=== PATIENT | female | born 2000 | race Caucasian/White ===

== ENCOUNTER 2023-05-10 12:19 | Emergency (ER) | payer OTHER, SELFPAY ==
--- NOTE | 2023-05-10 12:46 | ED_ITS ---
HPI - Head Injury <AMELIE Levi - Last Filed: 05/10/23 13:59> General Chief complaint: Head Injury Stated complaint: Head inj Time Seen by Provider: 05/10/23 12:45 History of Present Illness HPI Narrative: This is a 22-year-old female presents to the emergency department with a work- related injury where she was her parents unload a box truck and the tailgate door came down and hit her in the head causing a loss of consciousness. She is had blurred vision since this incident, complains of mid neck pain, fell backwards and states that her toes went numb but then she came back to. Endorses nausea without vomiting, had repetitive questioning on the way to the hospital today and was concerned because her vision was blurry. Related Data Home Medications Medication Instructions Recorded Confirmed gabapentin PO QPM 07/09/19 07/09/19 Previous Rx's Medication Instructions Recorded ondansetron 4 mg disintegrating 4 mg PO Q8H #10 tabs 05/10/23 tablet Allergies Allergy/AdvReac Type Severity Reaction Status Date / Time No Known Drug Allergies Allergy Verified 05/10/23 12:47 Review of Systems <AMELIE Levi - Last Filed: 05/10/23 13:59> Review of Systems ROS Unobtainable: All systems reviewed & are unremarkable except as noted in HPI and below Patient History <AMELIE Levi - Last Filed: 05/10/23 13:59> Social History Smoking Status: Current every day smoker Smoking Status: Former smoker Exam <AMELIE Levi - Last Filed: 05/10/23 13:59> Narrative Exam Narrative: Reviewed vitals signs and nursing notes. General: Pleasant, sitting upright, delayed and slowed reaction time, well groomed, afebrile HEENT: symmetrical facial expressions, moist mucous membranes, neck is supple, no cervical spine tenderness to palpation, patient complains of neck pain, muscle tension, wearing a C-collar, will obtain CT cervical spine prior to removing the collar. Pupils are equal and reactive without nystagmus, EOMI, and patient's speech is clear CV: regular rate and rhythm, warm extremities Respiratory: normal work of breathing, without tachypnea or hypoxia. GI: abdomen soft, nondistended, without CVA tenderness bilaterally. MSK: moves all extremities, no weakness, normal tone, ambulatory without deficit Skin: brisk capillary refill, without rash or wound Neuro: clear speech and normal cognition, A&O x3, GCS 15, no focal motor or sensation deficits Initial Vital Signs Initial Vital Signs: Vital Signs Temperature 98.0 F 05/10/23 12:47 Pulse Rate 93 H 05/10/23 12:47 Respiratory Rate 14 05/10/23 12:47 Blood Pressure 139/100 H 05/10/23 12:47 Pulse Oximetry 99 05/10/23 12:47 Oxygen Delivery Method Room Air 05/10/23 12:47 <Jeane Wilkinson DO - Last Filed: 05/20/23 01:34> Initial Vital Signs Initial Vital Signs: Vital Signs Temperature 98.0 F 05/10/23 12:47 Pulse Rate 93 H 05/10/23 12:47 Respiratory Rate 14 05/10/23 12:47 Blood Pressure 139/100 H 05/10/23 12:47 Pulse Oximetry 99 05/10/23 12:47 Oxygen Delivery Method Room Air 05/10/23 12:47 Scores <AMELIE Levi - Last Filed: 05/10/23 13:59> Nexus Score for C-Spine Focal Neurologic deficit present: No Midline spinal tenderness present: No Altered level of conciousness present: Yes Intoxication present: No Distracting Injury Present: No Nexus Criteria for C-spine: 1 <Jeane Wilkinson DO - Last Filed: 05/20/23 01:34> Nexus Score for C-Spine Nexus Criteria for C-spine: 1 Course <AMELIE Levi - Last Filed: 05/10/23 13:59> Orders Ordered: Discontinued Medications Acetaminophen (Acetaminophen 325 Mg Tablet) 650 mg PO NOW ONE Stop: 05/10/23 12:56 Last Admin: 05/10/23 13:24 Dose: 650 mg Documented By: SARAH Ibuprofen (Ibuprofen 400 Mg Tablet) 600 mg PO NOW ONE Stop: 05/10/23 12:56 Last Admin: 05/10/23 13:24 Dose: 600 mg Documented By: SARAH Ondansetron HCl (Ondansetron 4 Mg Odt) 4 mg SL NOW ONE Stop: 05/10/23 12:56 Last Admin: 05/10/23 13:25 Dose: 4 mg Documented By: SARAH Vital Signs Vital signs: Vital Signs - 8 hr 05/10/23 12:47 Temperature 98.0 F Pulse Rate 93 H Respiratory Rate 14 Blood Pressure 139/100 H Pulse Oximetry 99 Oxygen Delivery Method Room Air <Jeane Wilkinson DO - Last Filed: 05/20/23 01:34> Orders Ordered: Discontinued Medications Acetaminophen (Acetaminophen 325 Mg Tablet) 650 mg PO NOW ONE Stop: 05/10/23 12:56 Last Admin: 05/10/23 13:24 Dose: 650 mg Documented By: RLS Ibuprofen (Ibuprofen 400 Mg Tablet) 600 mg PO NOW ONE Stop: 05/10/23 12:56 Last Admin: 05/10/23 13:24 Dose: 600 mg Documented By: SARAH Ondansetron HCl (Ondansetron 4 Mg Odt) 4 mg SL NOW ONE Stop: 05/10/23 12:56 Last Admin: 05/10/23 13:25 Dose: 4 mg Documented By: SARAH Vital Signs Vital signs: Vital Signs - 8 hr 05/10/23 12:47 Temperature 98.0 F Pulse Rate 93 H Respiratory Rate 14 Blood Pressure 139/100 H Pulse Oximetry 99 Oxygen Delivery Method Room Air MDM - Head Injury <AMELIE Levi - Last Filed: 05/10/23 13:59> Imaging Data CT scan - head: Radiologist's Impression: [place] [address] CT Scan Report Signed Patient: Amanda Don MR#: [id number] : 2000 Acct:[id number] Age/Sex: 22 / F Date of Service: 05/10/23 Loc: ED Accession Number: [id number] ?? Procedure: CT head/brain wo con Ordering Provider: Jud Reagan PROCEDURE:? CT HEAD/BRAIN WO CON ? INDICATIONS:? Head injury with sharp neck pain just prior to arrival ? TECHNIQUE:? Noncontrast 4.5 mm thick angled axial sections acquired from the foramen magnum to the vertex, with coronal and sagittal reformats.? For radiation dose reduction, the following was used:? automated exposure control, adjustment of mA and/or kV according to patient size.? ? COMPARISON:? None. ? FINDINGS:? Image quality:? Excellent.? ? CSF spaces:? Basal cisterns are patent.? No extra-axial fluid collections.? Ventricles are normal in size and shape.? ? Brain:? No midline shift.? No intracranial masses or hemorrhage.? Perez-white matter interface is normal.? ? Skull and face:? Calvarium and visualized facial bones are intact, without suspicious lesions.? ? Sinuses:? Visualized sinuses and mastoids are clear.? ? IMPRESSION:? No acute intracranial abnormalities. ? ? Dictated by: Velasquez Anderson M.D. on 05/10/2023 at 13:45 ? ? Approved by: Velasquez Anderson M.D. on 05/10/2023 at 13:46 ? CT - cervical spine: Radiologist's Impression: [address] [address] [address] Scan Report Signed Patient: Amanda Don MR#: [id number] : 2000 Acct:[id number] Age/Sex: 22 / F Date of Service: 05/10/23 Loc: ED Accession Number: [id number] ?? Procedure: CT cervical spine wo con Ordering Provider: Jud Reagan PROCEDURE:? CT CERVICAL SPINE WO CON ? INDICATIONS:? Head injury with sharp neck pain just prior to arrival ? TECHNIQUE:? Noncontrast 3 mm thick sections acquired from the skull base to the T4 level.? Sagittal and coronal reformats were then constructed.? For radiation dose reduction, the following was used:? automated exposure control, adjustment of mA and/or kV according to patient size.? ? COMPARISON:? None. ? FINDINGS:? Image quality:? Excellent.? ? Bones:? No fractures or dislocations.? Visualized superior ribs are intact.? Straightening of normal lumbar lordosis. ? Soft tissues:? Prevertebral soft tissues are normal in thickness.? No paravertebral hematomas.? No apical pneumothoraces.? ? ? IMPRESSION:? No acute cervical spine fracture or traumatic listhesis. ? ? ? Dictated by: Velasquez Anderson M.D. on 05/10/2023 at 13:46 ? ? Approved by: Velasquez Anderson M.D. on 05/10/2023 at 13:48 ? MDM Narrative Medical decision making narrative: Chief Complaint: Head injury at work Multiple etiologies for patient's complaint considered including, but not limited to: Concussion, skull fracture, contusion, closed head injury, intracranial hemorrhage, cervical spine fracture I have independently reviewed the patient's vital signs and nursing notes as well as prior records if available. Plan: To patient's mechanism and her exam, we will order CT head and C-spine imaging as patient has mildly altered level of consciousness post concussion, has slow responses and is photosensitive, sensitive to sound, nauseated, vision is intermittently blurry. Patient's imaging is negative for acute abnormality or evidence hemorrhage or fracture. Patient feels better after her Tylenol, ibuprofen, and Zofran. She was given information about concussions and a work note. To follow up with primary if she has ongoing symptoms, use Tylenol and ibuprofen with Zofran as needed to treat symptoms and was given a work note to return Sunday morning. Social considerations that may affect disposition: none Questions are addressed and there is agreement with the plan and for follow-up. I consulted with the ED attending physician Dr. Wilkinson as needed for higher level of care considerations and they were available for discussion and recommendations regarding plan of care and diagnostic testing. Patient is appropriate for outpatient management. Discharge Plan Departure Patient Disposition: Home Clinical Impression: Acute neck pain, Work related injury Closed head injury Qualifiers: Encounter type: initial encounter Qualified Code(s): S09.90XA - Unspecified injury of head, initial encounter Concussion Qualifiers: Encounter type: initial encounter Loss of consciousness presence/duration: with LOC of 30 min or less Qualified Code(s): S06.0X1A - Concussion with loss of consciousness of 30 minutes or less, initial encounter Instructions: Concussion, DI for Closed Head Injury Activity Restrictions/Additional Instructions: *You have been diagnosed with closed head injury, and a significant concussion with loss of consciousness. Please follow the [id number] protocol Stage Aim Activity Goal of each step 1. Symptom-limited activity. Daily activities that do not provoke symptoms. Gradual reintroduction of work/school activities. 2. Light aerobic exercise. Walking or stationary cycling at slow to medium pace. No resistance training. Increase heart rate. 3. Sport-specific exercise. Running or skating drills. No head impact activities. Add movement. 4. Non-contact training drills. May start progressive resistance training and more exertional exercise, coordination and increased thinking. 5. Full contact practice. Following medical clearance, participate in normal training activities. Restore confidence and assess functional skills by coaching staff. 6. Return to sport/active job. NOTE: An initial period of 24 to 48 hours of both relative physical rest and cognitive rest is recommended before beginning the RTS progression. There should be at least 24 hours (or longer) for each step of the progression. If any symptoms worsen during exercise, the athlete should go back to the previous step. Resistance training should be added only in the later stages (stage 3 or 4 at the earliest). If symptoms are persistent (eg, more than 10 to 14 days in adults or more than 1 month in children), the athlete should be referred to a health hospice home care coordinator who is an expert in the management of concussion. Please rest as much as possible. Take ibuprofen and Tylenol every 6 hours with food for pain and your symptoms as needed. Please roll picker Zofran if you continue to have nausea and use that in addition to the Tylenol and ibuprofen. I hope you feel better soon, drink plenty of clear fluids and take the next few days off of work. Okay to go back on Sunday if symptom free. *What to do: *Please continue to take your regular medications as directed. [ X] New medication prescriptions sent to your pharmacy: [Marilin Barriga ] [ ] New medication written as a paper prescription [ ] No new medications given *Please call and schedule follow up with your primary care provider in 2-3 days, at least for an update. Let them know you were seen in the Emergency Department for the above problem. We will electronically transmit a record of today's note if your PCP or specialist is in our system. *If you do not have a primary care provider please contact [phone] to establish care with one of the [facility] primary care providers. *Return to the Emergency Department for worsening symptoms, inability to keep liquids down, fever greater than 101F, chills, or other concerning symptom. Prescriptions: New ondansetron 4 mg tablet,disintegrating 4 mg PO Q8H Qty: 10 0RF No Action gabapentin PO QPM Stand Alone Forms: Patient Portal/API, Work Release Note <Jeane Wilkinson, - Last Filed: 05/20/23 01:34> Cosign ED Attending Cosignature Attestation: I was immediately available in the department for consultation. Documentation has been reviewed.
[2023-05-10 12:47] VITALS: BP 139/100; PULSE 93; RESP 14; TEMP 36.7; O2SAT 99
--- NOTE | 2023-05-10 12:55 | DI.CT.S_ITS ---
PROCEDURE: CT HEAD/BRAIN WO CON INDICATIONS: Head injury with sharp neck pain just prior to arrival TECHNIQUE: Noncontrast 4.5 mm thick angled axial sections acquired from the foramen magnum to the vertex, with coronal and sagittal reformats. For radiation dose reduction, the following was used: automated exposure control, adjustment of mA and/or kV according to patient size. COMPARISON: None. FINDINGS: Image quality: Excellent. CSF spaces: Basal cisterns are patent. No extra-axial fluid collections. Ventricles are normal in size and shape. Brain: No midline shift. No intracranial masses or hemorrhage. Perez-white matter interface is normal. Skull and face: Calvarium and visualized facial bones are intact, without suspicious lesions. Sinuses: Visualized sinuses and mastoids are clear. IMPRESSION: No acute intracranial abnormalities. Dictated by: Velasquez Anderson M.D. on 05/10/2023 at 13:45 Approved by: Velasquez Anderson M.D. on 05/10/2023 at 13:46
--- NOTE | 2023-05-10 12:55 | DI.CT.S_ITS ---
PROCEDURE: CT CERVICAL SPINE WO CON INDICATIONS: Head injury with sharp neck pain just prior to arrival TECHNIQUE: Noncontrast 3 mm thick sections acquired from the skull base to the T4 level. Sagittal and coronal reformats were then constructed. For radiation dose reduction, the following was used: automated exposure control, adjustment of mA and/or kV according to patient size. COMPARISON: None. FINDINGS: Image quality: Excellent. Bones: No fractures or dislocations. Visualized superior ribs are intact. Straightening of normal lumbar lordosis. Soft tissues: Prevertebral soft tissues are normal in thickness. No paravertebral hematomas. No apical pneumothoraces. IMPRESSION: No acute cervical spine fracture or traumatic listhesis. Dictated by: Velasquez Anderson M.D. on 05/10/2023 at 13:46 Approved by: Velasquez Anderson M.D. on 05/10/2023 at 13:48
[2023-05-10] MEDS: ACETAMINOPHEN 325 MG TABLET 650 MG PO (13:24)
[2023-05-10] MEDS: IBUPROFEN 400 MG TABLET 600 MG PO (13:24)
[2023-05-10] MEDS: ONDANSETRON 4 MG ODT SL (13:25)
[2023-05-10 13:54] VITALS: BP 121/77; PULSE 70; RESP 12; O2SAT 100
== END 2023-05-10 13:54 | disposition home or self-care (01) ==
PROVIDERS: Emergency Provider Nurse Practitioner Critical Care Medicine
DX: S06.0X1A Concussion with loss of consciousness of 30 minutes or less, initial encounter (principal); H53.8 Other visual disturbances; M54.2 Cervicalgia; W18.30XA Fall on same level, unspecified, initial encounter; Y99.0 Civilian activity done for income or pay
CPT/HCPCS: 70450; 72125; 99284

== ENCOUNTER → 2023-06-04 09:18 | Outpatient (CLI) | payer OTHER, SELFPAY ==
--- NOTE | 2023-06-04 | DI.MRI.S_ITS ---
PROCEDURE: MR HEAD/BRAIN WO CON INDICATIONS: CONCUSSION WITH LOSS OF CONSCIOUSNESS TECHNIQUE: Noncontrast axial T1 spin echo, axial T2 fast spin echo, sagittal and axial FLAIR, coronal T2 fast spin echo, axial gradient echo, axial diffusion and ADC through the brain. COMPARISON: [facility], CT, CT HEAD/BRAIN WO CON, 05/10/2023, 13:08. FINDINGS: Image quality: Excellent. CSF Spaces: Basal cisterns are patent. No extra-axial fluid collections. Ventricles are normal in size and shape. Brain: No intracranial masses or hemorrhage. Perez/white matter interface is normal. Brainstem appears normal. Diffusion-weighted images demonstrate no acute ischemic insult. No chronic ischemic insults. Normal intravascular flow voids are present. Skull and face: Calvarium has normal marrow signal. Orbits appear normal. Sinuses: Sinuses and mastoids are clear. IMPRESSION: Unremarkable brain MRI, without findings of hemorrhage or brain edema. No hydrocephalus. Dictated by: Joseluis Martinez M.D. on 06/04/2023 at 15:29 Approved by: Joseluis Martinez M.D. on 06/04/2023 at 15:30
== END ==
DX: S06.0XAA Concussion with loss of consciousness status unknown, initial encounter (principal)
CPT/HCPCS: 70551